=== PATIENT | male | born 1950 | race Caucasian/White ===

== ENCOUNTER 2018-05-03 13:27 | Emergency (ER) | payer MEDICARE, OTHER ==
--- NOTE | 2018-05-03 13:42 | EDM.PDOC ---
ED HPI GENERAL MEDICAL PROBLEM - General Chief Complaint: Cardiovascular Problem Stated Complaint: CHEST PAY Time Seen by Provider: 05/03/18 13:28 Source of Information: Reports: Patient History Limitations: Reports: No Limitations - History of Present Illness INITIAL COMMENTS - FREE TEXT/NARRATIVE: 68-year-old male with known heart disease, has had 4 stents in the past. He takes nitroglycerin for chest pain fairly regularly and it always works. He had a stress test 4 months ago which was negative. This morning while he was active he had some pain and took nitroglycerin and it resolved. This afternoon 2-1/2 hours ago it returned, he took nitroglycerin and it did not improve so he came in. He can feel increased pain with lifting his left arm, taking a deep breath, and it seems better if he lays down. No significant shortness of breath, diaphoresis or nausea. No radiation of pain. Duration: Hour(s): (Pain is occurred twice today, the last episode almost 3 hours) Location: Reports: Chest Associated Symptoms: Reports: No Other Symptoms - Related Data Allergies Allergy/AdvReac Type Severity Reaction Status Date / Time codeine phosphate Allergy Facial Verified 05/03/18 13:35 [From Tylenol-Codeine #3] Swelling Sulfa (Sulfonamide Allergy Fever Verified 05/03/18 13:35 Antibiotics) terazosin [Terazosin] Allergy Nausea Verified 05/03/18 13:35 Home Meds: Home Meds Aspirin [Low Dose Aspirin EC] 1 tab PO DAILY 02/05/14 [History] Loperamide [Imodium AD] 1 tab PO ASDIRECTED PRN 02/05/14 [History] Omeprazole 1 cap PO DAILY 02/05/14 [History] Metoprolol Tartrate [Lopressor] 0.5 tab PO BID 01/09/18 [History] Mirtazapine 0.5 tab PO DAILY 01/09/18 [History] Rosuvastatin [Crestor] 0.5 tab PO DAILY 01/09/18 [History] Gabapentin [Gralise] 150 mg PO TID 05/03/18 [History] ED ROS GENERAL - Review of Systems Review Of Systems: See Below Constitutional: Denies: Fever, Chills HEENT: Reports: No Symptoms Respiratory: Denies: Shortness of Breath Cardiovascular: Reports: Chest Pain. Denies: Palpitations GI/Abdominal: Denies: Nausea, Vomiting Skin: Reports: No Symptoms Neurological: Reports: No Symptoms ED EXAM, GENERAL - Physical Exam Exam: See Below Exam Limited By: No Limitations General Appearance: Alert, No Apparent Distress Head: Atraumatic Respiratory/Chest: No Respiratory Distress, Lungs Clear, Other (I cannot reproduce tenderness with palpation the chest wall) Cardiovascular: Regular Rate, Rhythm GI/Abdominal: Soft, Non-Tender Extremities: Normal Inspection. No: Pedal Edema Neurological: Alert, Oriented Psychiatric: Normal Affect, Normal Mood Skin Exam: Warm, Dry EKG INTERPRETATION Rhythm: NSR Course - Vital Signs Last Recorded V/S: Last Vital Signs Temp 96.8 F 05/03/18 13:32 Pulse 96 05/03/18 13:32 Resp 15 05/03/18 13:32 BP 150/99 H 05/03/18 13:32 Pulse Ox 98 05/03/18 13:32 - Orders/Labs/Meds Orders: Active Orders 24 hr Category Date Time Status EKG Documentation Completion [RC] ASDIRECTED Care 05/03/18 13:34 Active EKG 12 Lead [EK] Routine Ther 05/03/18 13:34 Ordered Labs: Laboratory Tests 05/03/18 05/03/18 05/03/18 Range/Units 13:34 13:34 16:55 WBC 10.3 (4.5-11.0) K/uL RBC 4.80 (4.30-5.90) M/uL Hgb 13.8 (12.0-15.0) g/dL Hct 41.2 (40.0-54.0) % MCV 86 (80-98) fL MCH 29 (27-31) pg MCHC 34 (32-36) % Plt Count 296 (150-400) K/uL Neut % (Auto) 55 (36-66) % Lymph % (Auto) 35 (24-44) % Collin % (Auto) 7 H (2-6) % Eos % (Auto) 2 (2-4) % Baso % (Auto) 1 (0-1) % Sodium 140 (140-148) mmol/L Potassium 3.9 (3.6-5.2) mmol/L Chloride 106 (100-108) mmol/L Carbon Dioxide 17 L (21-32) mmol/L Anion Gap 20.9 H (5.0-14.0) mmol/L BUN 31 H D (7-18) mg/dL Creatinine 1.5 H D (0.8-1.3) mg/dL Est Cr Clr Drug Dosing 51.59 mL/min Estimated GFR (MDRD) 47 L (>60) Glucose 137 H (74-106) mg/dL Calcium 8.3 L (8.5-10.1) mg/dL Troponin I < 0.017 < 0.017 (0.000-0.056) ng/mL - Re-Assessments/Exams Free Text/Narrative Re-Assessment/Exam: 05/03/18 13:41 EKG was done which showed no acute findings. An IV was started, no medications needed as the patient's pain was literally gone within 10 minutes. CBC BMP and troponin were obtained. 05/03/18 14:30 BUN and creatinine are up slightly compared to previous baseline levels, but troponin is 0. Symptoms did not recur while in the emergency room. We will watch the patient for 3 hours, and repeat his troponin unless his pain recurs. 05/03/18 17:41 Repeat troponin still 0. Patient developed no symptoms while in the emergency room. He will continue treatment with his normal medications and return or call his plastic press molder if symptoms are recurring. Departure - Departure Time of Disposition: 18:01 Disposition: Home, Self-Care 01 Condition: Good Clinical Impression: Chest pain Qualifiers: Chest pain type: precordial pain Qualified Code(s): R07.2 - Precordial pain Instructions: Nonspecific Chest Pain, [id number] Referrals: PCP,None [Primary Care Provider] - Forms: ED Department Discharge Care Plan Goals: Continue your current medications, including nitroglycerin when needed. Consider returning to the emergency room or calling your plastic press molder if symptoms are persistent or worsening. - My Orders Last 24 Hours: My Active Orders 05/03/18 13:34 EKG Documentation Completion [RC] ASDIRECTED EKG 12 Lead [EK] Routine - Assessment/Plan Last 24 Hours: My Active Orders 05/03/18 13:34 EKG Documentation Completion [RC] ASDIRECTED EKG 12 Lead [EK] Routine
== END 2018-05-03 18:00 | disposition home or self-care (01) ==
LOC: JP.ED 13:27
DX: R07.2 Precordial pain (principal); Z79.82 Long term (current) use of aspirin; Z79.899 Other long term (current) drug therapy; Z88.5 Allergy status to narcotic agent; Z88.2 Allergy status to sulfonamides
CPT/HCPCS: 36415; 80048; 84484; 85025; 93005; 99285-25

== ENCOUNTER 2020-11-16 21:04 | Emergency (ER) | payer OTHER, MEDICARE ==
--- NOTE | 2020-11-16 21:20 | EDM.PDOC ---
<Jarek Lozano R - Last Filed: 11/17/20 06:36> ED HPI GENERAL MEDICAL PROBLEM - General Chief Complaint: Drug or Alcohol Abuse Stated Complaint: MEDICAL VIA TRI Time Seen by Provider: 11/16/20 21:12 Source of Information: Reports: Patient, EMS History Limitations: Reports: Other (alcohol use. ) - History of Present Illness INITIAL COMMENTS - FREE TEXT/NARRATIVE: Jacob Ramirez is a 70 year old male that presents via EMS. patient notes "I'm drunk" "I want to go to [facility]" no reported trauma no repoted drug use not on anticoagulation no information captured by ED RN from EMS. HPI is limited due to alcohol use. Patient states he drinks up to 1 L a day. He is not sure who called paramedics. He denies any homicidal suicidal intent. He is limited historian upon arrival. He denies any trauma. He denies any coingestions. He denies any alcohol withdrawal. He notes he needs "Valium". Patient denies diabetes. He does admit to use of gabapentin. He denies heart disease or lung disease. He denies tobacco use. He notes today alcohol use. Patient's HPI and ROS is limited due to the use of alcohol and the patient providing somewhat tangential responses. He is not Covid vaccinated. When asked patient denies any fever, runny nose, cough or change in taste or smell. No diarrhea. He notes he lives independently. - Related Data Allergies Allergy/AdvReac Type Severity Reaction Status Date / Time codeine phosphate Allergy Facial Verified 05/03/18 13:35 [From Tylenol-Codeine #3] Swelling Sulfa (Sulfonamide Allergy Fever Verified 05/03/18 13:35 Antibiotics) terazosin [Terazosin] Allergy Nausea Verified 05/03/18 13:35 Home Meds: Home Meds Aspirin [Low Dose Aspirin EC] 1 tab PO DAILY 02/05/14 [History] Loperamide [Imodium AD] 1 tab PO ASDIRECTED PRN 02/05/14 [History] Omeprazole 1 cap PO DAILY 02/05/14 [History] Metoprolol Tartrate [Lopressor] 0.5 tab PO BID 01/09/18 [History] Mirtazapine 0.5 tab PO DAILY 01/09/18 [History] Rosuvastatin [Crestor] 0.5 tab PO DAILY 01/09/18 [History] Gabapentin [Gralise] 150 mg PO TID 05/03/18 [History] Past Medical History HEENT History: Reports: Cataract, Glaucoma, Impaired Vision Cardiovascular History: Reports: Bypass, Hypertension, CO Respiratory History: Reports: Sleep Apnea Gastrointestinal History: Reports: Chronic Diarrhea, Other (See Below) Other Gastrointestinal History: ulcers Musculoskeletal History: Reports: None Psychiatric History: Reports: Depression - Infectious Disease History Infectious Disease History: Reports: Chicken Pox, Hepatitis C, Measles, Mumps - Past Surgical History Head Surgeries/Procedures: Reports: None HEENT Surgical History: Reports: Tonsillectomy Cardiovascular Surgical History: Reports: Carotid Stents Respiratory Surgical History: Reports: None GI Surgical History: Reports: Appendectomy Musculoskeletal Surgical History: Reports: Other (See Below) Other Musculoskeletal Surgeries/Procedures:: rotator cuff Dermatological Surgical History: Reports: None Social & Family History - Family History Family Medical History: No Pertinent Family History - Caffeine Use Caffeine Use: Reports: Coffee, Energy Drinks, Tea ED ROS GENERAL - Review of Systems Review Of Systems: See Below (limited due to alchol use.) - Physical Exam Exam: See Below Exam Limited By: Intoxication General Appearance: Alert Eye Exam: Bilateral Eye: Other (anicteric. perrl 4 mm with lateral nystagmus) Ears: Normal External Exam, Hearing Grossly Normal, Other (no mastoid swelling or ecchymosis. intact canals, no blood) Nose: Normal Inspection, No Blood. No: Nasal Tenderness, Clear Rhinorrhea Throat/Mouth: Normal Inspection, Normal Lips, Normal Voice Head Exam: Atraumatic. No: Scalp Lacerations, Scalp Swelling, Scalp Abrasions, Scalp Ecchymosis, Scalp Hematoma, Scalp Tenderness, Facial Abrasions, Facial Swelling, Facial Tenderness, Sinus Tenderness Neck: Normal Inspection, Full Range of Motion Respiratory/Chest: No Respiratory Distress, Lungs Clear, Normal Breath Sounds, Chest Non-Tender Cardiovascular: Normal Peripheral Pulses, No Edema, No Gallop, No JVD, No Murmur GI/Abdominal: Normal Bowel Sounds, Soft, Non-Tender, No Organomegaly, No Distention, No Abnormal Bruit, No Mass Neuro Exam (Abbreviated): Alert, Oriented, No Motor/Sensory Deficits, Other (Patient's cranial nerves II through VII intact. His level nystagmus. He does have slurred speech. He walks independently with a shoulder with gait. He is somewhat labile in his interaction with myself. He has a smell of alcohol on his breath.). No: Abnormal Gait Back Exam: Normal Inspection. No: Paraspinal Tenderness, Vertebral Tenderness Extremities: Normal Inspection, Non-Tender, No Pedal Edema Psychiatric: Other (Patient is somewhat labile in his interaction with myself admits to alcohol use daily. Missed marijuana use. Denies any intent to harm self or harm others. Upon arrival he notes he wants to go [facility] (detox) then further notes he wants to go home in the same sentence. He lacks insight.) Comments: Upon arrival lacks decision-making capacity. He is clinically intoxicated mitts to 1 L of alcohol use today. He notes he would like to be sober. He shortly thereafter indicates he like to be discharged home. Course - Vital Signs Text/Narrative:: Patient has stable but staggering gait. He missed alcohol use and abuse. He is limited historian and somewhat labile. Due to this he is being given oral olanzapine as he currently striking at the door. He is use occasional profanity. Patient was updated on the expectations for behavior while emerged, and our goal to help and assist him this weekend. Patient had to complete vital signs that obtained and reportedly normal. This includes a normal temperature, pulse ox, blood pressure and respiratory rate. Patient was placed on pulse ox monitor and neuro checks were ordered every hour. Laboratory studies were obtained and serial examinations ensued. On examination in the ER there is no signs of trauma head to toe exam. Patient's laboratory studies reviewed. Patient does not any signs of acute hepatic toxicity, severe salicylate or acetaminophen ingestion. He has had no reported attempt to harm self or harm others. His alcohol level is consistent with his mental status in the ER. Due to patient's statement elevated alcohol level and inability to reside independently based on the report by EMS he will be observed emergent overnight until clinically sober. Patient's initial trauma evaluation is reassuring and there is no signs on initial and repeat exams of trauma. He is nonfocal neurology mission. Patient may have a mild degree of alcoholic ketosis based on laboratory studies. We will give an oral fluids and food to help offset this mild degree of dehydration and alcoholic ketosis. We will observe him in the ER over the next 4 to 6 hours until clinically sober and arrange disposition thereafter. Consider detox if available. patient has Been assessed and reassessed. He has had a sandwich and soda/water without difficulty. he Is resting comfortably. His mental status is improving. he is more cooperative and appropriate in his interaction with myself. His vital signs are stable. Ambulated with a stable independent gait. 0009 11/17/2020: Patient cooperative he has had a stable gait. He is medically stable without signs of alcohol withdrawal or other drug toxidromes. He does admit to occasional marijuana use. Patient has agreed to go to [facility] for detox. We are awaiting acceptance at [facility]. Patient information available to me, serial evaluations over multiple hours I feel patient is currently medically stable for detox. Alternatively he may be observed in the emergency room until this morning if detox is not a viable option. At this time patient is agreeable to go to detox however. 0051: patient up with stable gait. he has given permission for family to obtain home medications from his house, for routine use at detox today. 0145: patient resting comfortably on cot. has taken additional po. Clinically stable for detox or discharge with sober mixer driver. 0332: patient recheck; resting, responds appropriately to questions. warm blankets provided. patient denies pain. medically stable. 0441: patient drinking water, cooperative, appropriate. stable. 0510; patient talking with ED RN. no signs of withdrawal. clinically sober. medically stable for discharge to detox or home with sober mixer driver. 0608: Patient is up ambulatory. He notes he feels mildly shaky. He has interest in going to detox. He is concerned if he goes home that he may continue to drink notes he has "a bottle at home". He notes he is due for his a.m. metoprolol ? 12.5 or 25 mg, and gabapentin 300 mg and a.m. omeprazole 20 mg. Will sign patient out at am change of shift, anticipating discharge to detox. bp mild elevated and HR 90. ok to give 25 mg of metoprolol Signout to am , Dr. Kristofer Dorsey, anticipating discharge to detox as patient is goal directed for such and [facility] notes they have capacity, but patient will need his home medications per [facility]. family is being contacted to obtain patients home meds. This record was created with voice recognition and may contain errors in grammar, spelling, punctuation etc. Patient is medically stable. At Times conditions change or evolve. If this occurs a repeat assessment is recommended. There is currently no signs of serious alcohol withdrawal symptomatology and a single dose of Valium was given here to help prevent alcohol withdrawal. Patient has intact mental status, stable gait is taking oral fluids without difficulty and is not homicidal suicidal or psychotic. He is goal-directed to maintain sobriety and to go to detox today. Departure - Departure Disposition: DC/Tfer to Other 70 Condition: Fair Clinical Impression: Alcohol abuse, Lab test negative for COVID-19 virus, Tetrahydrocannabinol (THC) use disorder, mild, abuse Alcohol intoxication Qualifiers: Complication of substance-induced condition: uncomplicated Qualified Code(s): F10.920 - Alcohol use, unspecified with intoxication, uncomplicated - Discharge Information Instructions: Alcohol Use Disorder, Alcohol Abuse and Dependence Information, Adult Referrals: PCP,None [Primary Care Provider] - Forms: ED Department Discharge Additional Instructions: Do not consume alcohol in excess. Ongoing alcohol use and use can leave to serious health problems including early or disability. You are at risk of falls, seizures and bleeding. Recommend ongoing alcohol use support, detox and or alcoholics anonymous. Do not drive while drinking alcohol. Use only pres cribed medications. <Kamar Dorsey - Last Filed: 11/17/20 08:12> Course - Vital Signs Last Recorded V/S: Last Vital Signs Temp 36.9 C 11/17/20 06:27 Pulse 96 11/17/20 06:27 Resp 18 11/17/20 06:27 BP 159/85 H 11/17/20 06:27 Pulse Ox 96 11/17/20 06:27 - Orders/Labs/Meds Orders: Active Orders 24 hr Category Date Time Status Neuro Check [RC] Q1HR Care 11/16/20 21:34 Active Overnight Pulse Oximetry [RC] Click to Edit Care 11/16/20 21:35 Active Pantoprazole [ProTONIX] Med 11/17/20 07:30 Active 40 mg PO ACBREAKFAST Pulse Oximetry Continuous Monitoring [OM.PC] Routine Oth 11/16/20 21:35 Ordered Medication Orders Pantoprazole Sodium (Pantoprazole 40 Mg Tab.Cr) 40 mg PO ACBREAKFAST BHANU Last Admin: 09/06/21 06:23 Dose: 40 mg Documented by: JONATHAN Labs: Laboratory Tests 11/16/20 11/16/20 11/16/20 Range/Units 21:45 21:45 21:45 WBC 9.0 (4.5-11.0) K/uL RBC 4.75 (4.30-5.90) M/uL Hgb 13.4 (12.0-15.0) g/dL Hct 41.7 (40.0-54.0) % MCV 88 (80-98) fL MCH 28 (27-31) pg MCHC 32 (32-36) % Plt Count 368 (150-400) K/uL Neut % (Auto) 55.6 (36-66) % Lymph % (Auto) 32.4 (24-44) % Arenac % (Auto) 6.3 H (2-6) % Eos % (Auto) 3.6 (2-4) % Baso % (Auto) 2.1 H (0-1) % PT 10.0 (9.5-12.0) sec INR 0.92 (0.80-1.20) Sodium 142 (140-148) mmol/L Potassium 3.6 (3.6-5.2) mmol/L Chloride 104 (100-108) mmol/L Carbon Dioxide 22 (21-32) mmol/L Anion Gap 16.2 H (5.0-14.0) mmol/L BUN 19 H (7-18) mg/dL Creatinine 1.2 (0.8-1.3) mg/dL Est Cr Clr Drug Dosing 64.67 mL/min Estimated GFR (MDRD) > 60 (>60) Glucose 90 (74-106) mg/dL Calcium 8.0 L (8.5-10.1) mg/dL Total Bilirubin 0.2 (0.2-1.0) mg/dL AST 43 H D (15-37) U/L ALT 60 D (12-78) U/L Alkaline Phosphatase 121 H (46-116) U/L Total Protein 7.2 (6.4-8.2) g/dL Albumin 3.6 (3.4-5.0) g/dL Globulin 3.6 H (2.3-3.5) g/dL Albumin/Globulin Ratio 1.0 L (1.2-2.2) Salicylates (2.0-20.0) mg/dL Urine Opiates Screen (NEGATIVE) Ur Oxycodone Screen (NEGATIVE) Urine Methadone Screen (NEGATIVE) Ur Propoxyphene Screen (NEGATIVE) Acetaminophen (10.0-30.0) ug/mL Ur Barbiturates Screen (NEGATIVE) Ur Tricyclics Screen (NEGATIVE) Ur Phencyclidine Scrn (NEGATIVE) Ur Amphetamine Screen (NEGATIVE) U Methamphetamines Scrn (NEGATIVE) Urine MDMA Screen (NEGATIVE) U Benzodiazepines Scrn (NEGATIVE) U Cocaine Metab Screen (NEGATIVE) U Marijuana (THC) Screen (NEGATIVE) Ethyl Alcohol mg/dL SARS CoV-2 RNA Rapid BARON 11/16/20 11/16/20 11/16/20 Range/Units 21:45 21:45 21:45 WBC (4.5-11.0) K/uL RBC (4.30-5.90) M/uL Hgb (12.0-15.0) g/dL Hct (40.0-54.0) % MCV (80-98) fL MCH (27-31) pg MCHC (32-36) % Plt Count (150-400) K/uL Neut % (Auto) (36-66) % Lymph % (Auto) (24-44) % Arenac % (Auto) (2-6) % Eos % (Auto) (2-4) % Baso % (Auto) (0-1) % PT (9.5-12.0) sec INR (0.80-1.20) Sodium (140-148) mmol/L Potassium (3.6-5.2) mmol/L Chloride (100-108) mmol/L Carbon Dioxide (21-32) mmol/L Anion Gap (5.0-14.0) mmol/L BUN (7-18) mg/dL Creatinine (0.8-1.3) mg/dL Est Cr Clr Drug Dosing mL/min Estimated GFR (MDRD) (>60) Glucose (74-106) mg/dL Calcium (8.5-10.1) mg/dL Total Bilirubin (0.2-1.0) mg/dL AST (15-37) U/L ALT (12-78) U/L Alkaline Phosphatase (46-116) U/L Total Protein (6.4-8.2) g/dL Albumin (3.4-5.0) g/dL Globulin (2.3-3.5) g/dL Albumin/Globulin Ratio (1.2-2.2) Salicylates 2.9 (2.0-20.0) mg/dL Urine Opiates Screen (NEGATIVE) Ur Oxycodone Screen (NEGATIVE) Urine Methadone Screen (NEGATIVE) Ur Propoxyphene Screen (NEGATIVE) Acetaminophen 0.0 L (10.0-30.0) ug/mL Ur Barbiturates Screen (NEGATIVE) Ur Tricyclics Screen (NEGATIVE) Ur Phencyclidine Scrn (NEGATIVE) Ur Amphetamine Screen (NEGATIVE) U Methamphetamines Scrn (NEGATIVE) Urine MDMA Screen (NEGATIVE) U Benzodiazepines Scrn (NEGATIVE) U Cocaine Metab Screen (NEGATIVE) U Marijuana (THC) Screen (NEGATIVE) Ethyl Alcohol 361 mg/dL SARS CoV-2 RNA Rapid BARON 11/16/20 11/17/20 Range/Units 23:33 01:00 WBC (4.5-11.0) K/uL RBC (4.30-5.90) M/uL Hgb (12.0-15.0) g/dL Hct (40.0-54.0) % MCV (80-98) fL MCH (27-31) pg MCHC (32-36) % Plt Count (150-400) K/uL Neut % (Auto) (36-66) % Lymph % (Auto) (24-44) % [place] % (Auto) (2-6) % Eos % (Auto) (2-4) % Baso % (Auto) (0-1) % PT (9.5-12.0) sec INR (0.80-1.20) Sodium (140-148) mmol/L Potassium (3.6-5.2) mmol/L Chloride (100-108) mmol/L Carbon Dioxide (21-32) mmol/L Anion Gap (5.0-14.0) mmol/L BUN (7-18) mg/dL Creatinine (0.8-1.3) mg/dL Est Cr Clr Drug Dosing mL/min Estimated GFR (MDRD) (>60) Glucose (74-106) mg/dL Calcium (8.5-10.1) mg/dL Total Bilirubin (0.2-1.0) mg/dL AST (15-37) U/L ALT (12-78) U/L Alkaline Phosphatase (46-116) U/L Total Protein (6.4-8.2) g/dL Albumin (3.4-5.0) g/dL Globulin (2.3-3.5) g/dL Albumin/Globulin Ratio (1.2-2.2) Salicylates (2.0-20.0) mg/dL Urine Opiates Screen Negative (NEGATIVE) Ur Oxycodone Screen Negative (NEGATIVE) Urine Methadone Screen Negative (NEGATIVE) Ur Propoxyphene Screen Negative (NEGATIVE) Acetaminophen (10.0-30.0) ug/mL Ur Barbiturates Screen Negative (NEGATIVE) Ur Tricyclics Screen Negative (NEGATIVE) Ur Phencyclidine Scrn Negative (NEGATIVE) Ur Amphetamine Screen Negative (NEGATIVE) U Methamphetamines Scrn Negative (NEGATIVE) Urine MDMA Screen Negative (NEGATIVE) U Benzodiazepines Scrn Negative (NEGATIVE) U Cocaine Metab Screen Negative (NEGATIVE) U Marijuana (THC) Screen Presumptive positive H (NEGATIVE) Ethyl Alcohol mg/dL SARS CoV-2 RNA Rapid BARON Negative Meds: Medications Generic Name Dose Route Start Last Admin Trade Name Freq PRN Reason Stop Dose Admin Pantoprazole Sodium 40 mg 11/17/20 07:30 11/17/20 06:23 Pantoprazole 40 Mg Tab.Cr PO 40 mg ACBREAKFAST BHANU Administration Discontinued Medications Generic Name Dose Route Start Last Admin Trade Name Freq PRN Reason Stop Dose Admin Diazepam 5 mg 11/17/20 06:16 11/17/20 06:23 Diazepam 5 Mg Tab PO 11/17/20 06:17 5 mg ONETIME ONE Administration Gabapentin 300 mg 11/17/20 06:10 11/17/20 06:19 Gabapentin 300 Mg Cap PO 11/17/20 06:11 300 mg ONETIME ONE Administration Metoprolol Tartrate 25 mg 11/17/20 06:09 11/17/20 06:19 Metoprolol Tartrate 25 Mg Tab PO 11/17/20 06:10 25 mg ONETIME ONE Administration Olanzapine 5 mg 11/16/20 21:28 11/16/20 21:45 Olanzapine 5 Mg Tab PO 11/16/20 21:29 5 mg ONETIME ONE Administration Olanzapine 10 mg 11/16/20 21:36 11/16/20 23:12 Olanzapine 10 Mg Vial IM 11/16/20 21:37 Not Given ONETIME ONE Olanzapine 5 mg 11/16/20 21:43 11/16/20 21:46 Olanzapine 5 Mg Tab PO 11/16/20 21:44 Not Given ONETIME ONE Departure - Departure Time of Disposition: 09:05 - Discharge Information *PRESCRIPTION DRUG MONITORING PROGRAM REVIEWED*: Not Applicable *COPY OF PRESCRIPTION DRUG MONITORING REPORT IN PATIENT MIKE: Not Applicable Sepsis Event Note (ED) - Focused Exam Vital Signs: Vital Signs Temp Pulse Pulse Resp BP BP BP 11/17/20 06:27 36.9 C 96 18 159/85 H 11/17/20 06:19 96 159/85 H 11/17/20 04:00 36.6 C 16 117/70 11/17/20 02:22 100 11/17/20 00:15 103 H 18 102/70 11/16/20 21:37 36.1 C 93 14 147/82 H 11/16/20 21:12 36.1 C Pulse Ox 11/17/20 06:27 96 11/17/20 06:19 11/17/20 04:00 95 11/17/20 02:22 93 L 11/17/20 00:15 94 L 11/16/20 21:37 95 11/16/20 21:12
[2020-11-16] MEDS ORDERED: OLANZapine 10 MG Vial IM ONE (21:36)
[2020-11-16] MEDS ORDERED: OLANZapine 5 MG Tab PO ONE (21:43)
[2020-11-16] MEDS: OLANZapine 5 MG Tab PO ONE (21:45)
[2020-11-17] MEDS ORDERED: Metoprolol Tartrate 25 MG Tab PO ONE (06:09)
[2020-11-17] MEDS ORDERED: Gabapentin 300 MG Cap PO ONE (06:10)
[2020-11-17] MEDS ORDERED: Diazepam 5 MG Tab PO ONE (06:16)
[2020-11-17] MEDS ORDERED: Pantoprazole 40 MG Tab.CR PO SCH (07:30)
== END 2020-11-17 09:48 | disposition other institution (70) ==
LOC: JP.ED 21:04
DX: F10.120 Alcohol abuse with intoxication, uncomplicated (principal); F12.10 Cannabis abuse, uncomplicated; I10 Essential (primary) hypertension; I25.2 Old myocardial infarction; Y90.8 Blood alcohol level of 240 mg/100 ml or more; Z88.5 Allergy status to narcotic agent; Z88.2 Allergy status to sulfonamides; Z88.8 Allergy status to other drugs, medicaments and biological substances; Z79.82 Long term (current) use of aspirin; Z79.899 Other long term (current) drug therapy; Z20.822 Contact with and (suspected) exposure to COVID-19
CPT/HCPCS: 36415; 80053; 80143; 80179; 80305; 80307; 85025; 85610; 87635; 99285; A9270; U0002